=== PATIENT | male | born 1990 | race African-American/Black ===

== ENCOUNTER 2024-02-07 08:23 | Emergency (ER) | payer SELFPAY ==
[2024-02-07 08:25] VITALS: BP 149/98
[2024-02-07 08:57] LABS: Glucose - Point of Care 349 mg/dl (70-99)
--- NOTE | 2024-02-07 09:01 | ED.GENMED ---
History of Present Illness
General
Chief Complaint: Male Genito-Urinary Symptoms
Source: patient
Exam Limitations: none
Time Seen by Provider: 02/07/24 08:35
Nursing documentation reviewed up to this point in time: agreed with
History of Present Illness
History of Present Illness:
33-year-old male with insulin-dependent diabetes presents to the emergency room for evaluation of urinary symptoms. Patient reports that last month he was seen at urgent care for urinary symptoms and diagnosed with a UTI and was treated with
antibiotics. He says symptoms never really resolved and have been worsening recently and so he took a home UTI test from the pharmacy that was positive for UTI and so he came to the ER to be evaluated. He says he is sexually active last
intercourse was about 2 months ago; no specific STI concerns but requesting to be tested. He primarily complains of increased urinary frequency also reports some mild dysuria. Denies hematuria. Denies any penile discharge. Denies any scrotal
pain or swelling. Denies any abdominal or flank pain. Denies any fevers or chills. He denies any other complaints. He reports that his blood sugars have been well-controlled and he monitors them with home glucometer.
Review of Systems
Review of Systems
All Other Systems: ROS reviewed and negative except as documented in HPI and ROS
Constitutional: Denies fever or chills
Respiratory: Denies trouble breathing
Cardiac: Denies chest pain
ABD/GI: Denies abdominal pain, nausea or vomiting
: Reports dysuria and frequency; Denies flank pain or bleeding
Musculoskeletal: Denies neck pain
Neurological: Denies headache
Phy Exam
Physical Exam
Physical Exam:
General: Awake, alert, oriented x3; no acute distress
Head: Normocephalic, atraumatic
Eyes: Conjunctiva normal
Throat: Airway intact, handling secretions
Neck: Trachea midline
Lungs: Breathing comfortably with no distress
Heart: Regular rate
Abd: Soft, non distended, nontender
Back: No CVA tenderness
Neuro: No gross deficits
Extremities: Atraumatic, warm and well-perfused
Scores
Heart Failure Risk
Heart Failure Risk Score: Not Applicable
Heart Score for Chest Pain Patients
STEMI patient?: Not applicable
Withdrawal Assessment of Alcohol
Withdrawal Assessment Completed?: Not applicable
Course
Orders/Labs/Results
Orders:
Orders
02/07/24 08:51
Bedside Glucose- Treatment ONCE
02/07/24 09:02
Urinalysis Reflex To Culture Urgent
Date Specimen was Collected: 02/07/24
Time Specimen was Collected: 08:52
Chlamydia/GC by PCR Urgent
LUZ MARINA Source: Urine
Specimen Description:
Source:: URINE
Date Specimen was Collected: 02/07/24
Time Specimen was Collected: 08:52
02/07/24 09:37
0.9% Sodium Chloride 1000 ml [Nss] 1,000 ml IV BOLUS
02/07/24 09:47
Diabetes Education Consult Routine
Reason for Consult: Monitor Instruction
Newly Diagnosed?: No
02/07/24 09:54
Acetone [B-Hydroxybutyrate] Urgent
Complete Blood Count/With Diff Urgent
Comprehensive Metabolic Panel Urgent
Hemoglobin A1c [Glycohemoglobin (HgbA1c)] Urgent
Venous Blood Gas Urgent
%Oxygen/Room Air: 97
Abnormal Lab Results
02/07/24 02/07/24 02/07/24
08:56 09:02 09:54
Hct 38.6 L %
(39.0-52.0)
MCV 79.4 L fL
(80.0-94.0)
MPV 11.1 H fL
(7.4-10.4)
Eosinophils % 7.5 H %
(0-6)
VBG pCO2 53 H mmHg
(35-48)
VBG pO2 51 H mmHg
(30-50)
VBG HCO3 32.8 H mmol/L
(22-27)
Chloride 96 L mmol/L
(98-107)
Glucose 337 H mg/dl
(70-99)
ALT 82 H U/L
(0-50)
Alkaline Phosphatase 145 H U/L
(38-126)
Urine Glucose 3+ A
(Negative)
POC Glucose 349 H mg/dl
(70-99)
02/07/24
11:17
Hct
MCV
MPV
Eosinophils %
VBG pCO2
VBG pO2
VBG HCO3
Chloride
Glucose
ALT
Alkaline Phosphatase
Urine Glucose
POC Glucose 259 H mg/dl
(70-99)
02/07/24 09:54
02/07/24 09:54
Vital Signs
Initial and Last Documented VS:
Initial Vital Signs
Temp Pulse Resp BP Pulse Ox
37.0 C 71 18 149/98 97
02/07/24 08:25 02/07/24 08:25 02/07/24 08:25 02/07/24 08:25 02/07/24 08:25
Last Documented Vital Signs
Temp Pulse Resp BP Pulse Ox
37.0 C 71 18 149/98 97
02/07/24 08:25 02/07/24 08:25 02/07/24 08:25 02/07/24 08:25 02/07/24 08:25
MDM/Problems Addressed
Differential Diagnosis Includes:
UTI, STI, hyperglycemia
MDM/Problems Addressed:
33-year-old male presents for evaluation of dysuria and increased urinary frequency�had symptoms a month ago was treated for UTI and symptoms worsening once again recently. Vitals normal, exam as above. Will check glucose here. Check urinalysis.
Sent testing for GC. Reassess after the above.
Urinalysis shows +3 glucose but no signs of infection. Patient's Accu-Chek was 350�suspect hyperglycemia is etiology of his urinary symptoms. STI testing is still pending but patient denies any specific concerns or exposures and has not been
sexually active in 2 months he says. I spoke with him about his blood sugar�he admits that he infrequently checks his glucose typically only uses long-acting insulin but interestingly does not use any short acting insulin. He says that he has a
primary doctor in [place] where he lives and he plans to make an appointment to follow-up; I did discuss with our community health educator here to speak with them and provide some education here in the ER. Will check labs to rule out DKA and provide
some fluids.
Labs reviewed: Nothing to suggest DKA�normal bicarb, normal pH. Beta hydroxybutyrate normal. After fluids glucose is improving. educator senior clinical spoke with patient at bedside, provided refills on test strips and guidance on more frequent glucose
monitoring. Spoke about adjustments to his insulin regimen�it sounds like he not infrequently forgets to take his insulin as he typically works night shifts and schedule is erratic. Spoke about setting an alarm on his phone tremor to use the
insulin. Will follow glucose and he says he will follow-up with his primary doctor to discuss further adjustment. I think is a reasonable plan. All questions answered.
Chronic conditions affecting care:
Insulin-dependent diabetes
*Pulse Oximetry
Patient hypoxic: no
*Critical Care Note
Total Time (30-74mins, 75-104mins- exclusive of procedures): Not Applicable
Data Reviewed
Source: patient
ED Attending Note
-
Portions of this chart may have been created with voice recognition software.� Occasional wrong word or��sound alike� substitutions may have occurred due to the inherent limitations of voice recognition software.
Discharge Plan
Departure
Patient Disposition: Home (Routine Discharge)
Date of Disposition: 02/07/24
Time of Disposition: 11:55
Patient with high blood pressure during this ER visit?: Yes
Discharge Problem:
Acute hyperglycemia, Urinary frequency
Instructions: The ABCs of diabetes, High Blood Sugar, Adult ED
Referrals:
NONE,* [Family Provider] -
Activity Restrictions/Additional Instructions:
Thank you for visiting the Emergency Department at [facility].
1. Please schedule a follow up appointment as directed. Call first thing tomorrow morning to make an appointment.
2. If indicated, please take your medications as instructed and indicated on discharge paperwork.
3. If any of your symptoms do not improve, or persist, or become more severe within 6-12 hours, please return to the emergency department for further care.
4. Please return to the emergency department if you develop a headache, neck pain/stiffness, fever greater than 100.4F, chest pain, shortness of breath, persistent nausea, vomiting, slurred speech, difficulty walking, numbness/tingling, weakness,
signs of infection or any other symptoms that are worrisome to you.
Please call [phone] if you have any questions.
Interventions
Interventions:
*Risk Screen - Suicide Last Done: 02/07/24 08:25
*General Assessment Last Done: 02/07/24 08:25
*Neglect/Abuse Screening Last Done: 02/07/24 08:25
ED-Male Genitourinary Assessment Last Done: 02/07/24 09:00
Discharge Date and Time
Print Language: QATARI
[2024-02-07 09:14] LABS: Urine Albumin Negative (Neg - Trace); Urine Bilirubin Negative (Negative); Urine Character Clear (Clear); Urine Color Yellow; Urine Glucose 3+ (Negative); Urine Ketone Negative (Negative); Urine Leukocyte Negative (Negative); Urine Nitrite Negative (Negative); Urine Occult Blood Negative (Negative); Urine Specific Gravity 1.015 (<1.030); Urine Urobilinogen Negative (Neg - 1+)
[2024-02-07 09:57] VITALS: BMI 30.3
[2024-02-07] MEDS: NSS 1000 IV (09:57)
[2024-02-07 10:06] LABS: Venous Blood Gas B.E. 6.5 mmol/L (-4 to +4); Venous Blood Gas HCO3 32.8 mmol/L (22-27); Venous Blood Gas O2 Sat % 83.1 %; Venous Blood Gas pCO2 53 mmHg (35-48); Venous Blood Gas pO2 51 mmHg (30-50)
[2024-02-07 10:08] LABS: % Basophils 0.6 % (0-2); % Eosinophils 7.5 % (0-6); % Immature Granulocytes 0.4 % (0-0.5); % Monocytes 7.7 % (1.7-9.3); % Neutrophils 55.8 % (42.2-75.2); Absolute Eosinophils 0.4 10^3/uL (0-0.7); Absolute Lymphocytes 1.3 10^3/uL (1.2-3.4); Absolute Monocytes 0.4 10^3/uL (0.1-0.6); Absolute Neutrophils 2.7 10^3/uL (1.4-6.5); Hematocrit 38.6 % (39.0-52.0); Hemoglobin 13.3 g/dL (13.0-18.0); Mean Corp Hgb Conc. 34.5 g/dL (33.0-37.0); Mean Corpuscular Hgb 27.4 pg (27.0-31.0); Mean Corpuscular Volume 79.4 fL (80.0-94.0); Mean Platelet Volume 11.1 fL (7.4-10.4); Nucleated Red Blood Cells % 0 % (-); Platelet Count 154 10^3/uL (130-400); Red Blood Cell Count 4.86 10^6/uL (4.70-6.10); White Blood Cell Count 4.8 10^3/uL (4.8-10.8)
[2024-02-07 10:29] LABS: ALT (SGPT) 82 U/L (0-50); AST (SGOT) 52 U/L (17-59); Alkaline Phosphatase 145 U/L (38-126); Blood Urea Nitrogen 20 mg/dl (9-20); Calcium 9.2 mg/dl (8.4-10.2); Carbon Dioxide 30 mmol/L (22-30); Chloride 96 mmol/L (98-107); Estimated Creatinine Clearance > 125 ml/min; Glucose 337 mg/dl (70-99); Potassium 4.5 mmol/L (3.5-5.1); Sodium 137 mmol/L (135-145); Total Bilirubin 0.9 mg/dl (0.2-1.3); Total Protein 7.1 g/dl (6.3-8.2); eGFR > 60.00
[2024-02-07 10:36] LABS: B-Hydroxybutyrate 0.11 mmol/L (0.02-0.27)
--- NOTE | 2024-02-07 10:58 | PN.DE ---
Diabetes Education
- -
02/07/2024: Diabetes Education Consult
33 year old male wit [facility] that includes IDDM x 10 years, who presented to the ED for evaluation of persistent urinary sx. Pt was recently in urgent care for similar complaints and was dx with a UTI--> home abx.
Diabetes Consult requested for Monitor instructions. Current A1C 10.4%
Met with Mr. Sanchez in ED for glucose monitor instructions. Pt states he only uses long-acting insulin- Lantus 60 units @ HS and is not on any short acting insulin. He states he has a glucose monitor- Contour Next Ez at home but does not consistently
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
Discussed current A1C and average blood sugar of 240, diabetes related short and jail complications and provided guidance on more frequent glucose monitoring. Offered pt a new Contour Next EZ glucometer, which he declined but requested for a
script for test strips and lancets- both written and sent to his pharmacy.
Discussed and recommended that he adjusts his insulin administration schedule to AM. Advised pt to set an alarm reminder on his phone to take his insulin daily in the morning when he gets home from work, as he typically works night shifts and sounds
like his schedule is erratic and doesn't always allow him the time to check his sugar and take his insulin at work.
Will need RX for test strips and lancets for the Contour Next EZ, testing 2x/day at discharge.
Discussed plan of care including medications for management at home with Dr. Ferrera and Nurse at bedside
[2024-02-07 11:18] LABS: Glucose - Point of Care 259 mg/dl (70-99)
[2024-02-07 12:02] LABS: Glycohemoglobin (HgbA1c) 10.4 % (4.0-5.6)
== END 2024-02-07 12:10 | disposition home or self-care (01) ==
LOC: EMR 08:23
PROVIDERS: EMERGENCY PHYSICIAN Emergency Medicine
DX: E11.65 Type 2 diabetes mellitus with hyperglycemia (principal); R35.0 Frequency of micturition; R03.0 Elevated blood-pressure reading, without diagnosis of hypertension
CPT/HCPCS: 99284; 96360; 80053; 81003; 82010; 82805; 82962; 83036; 85025; 87491; 87591